=== PATIENT | female | born 1965 | race Two or more races ===

== ENCOUNTER → 2024-10-03 | Outpatient (CLI) | payer BC, MEDICAID, SELFPAY ==
--- NOTE | 2024-10-03 10:30 | XR_ITS ---
Examination: Screening digital mammography, bilateral Computer aided detection 3-D breast Tomosynthesis, bilateral Date and time of exam: October 03, 2024, 1016 hours Compared to mammograms dating to June 18, 2020 Indication: Screening Technique: Nonmagnified MLO, CC views of the breasts to been obtained, reconstructed from 3-D Tomosynthesis images. R2 computer aided detection program utilized for evaluation of suspicious masses and/or abnormal calcifications. 3-D Tomosynthesis images obtained. Findings: Scattered areas of fibroglandular density. 6 mm focal asymmetry upper outer right breast posterior depth Benign calcifications Impression: BI-RADS Category 0: Incomplete: Need additional imaging evaluation Recommend follow-up spot tomographic views of 6 mm focal asymmetry upper outer right breast posterior depth, as well as right breast sonography to complete workup
== END | disposition home or self-care (01) ==
LOC: CDIM 09:58
PROVIDERS: Referring Provider Registered Nurse Pediatrics; Visit Provider Registered Nurse Pediatrics
DX: Z12.31 Encounter for screening mammogram for malignant neoplasm of breast (principal); N64.89 Other specified disorders of breast
CPT/HCPCS: 77063; 77067